=== PATIENT | female | born 1965 | race Caucasian/White ===

== ENCOUNTER 2018-01-30 11:21 | Emergency (ER) | payer MEDICAID ==
[~2018-01-30] VITALS: Ht 165.1 cm; Wt 55.0 kg
[~2018-01-30 11:21] MED LIST: ACET-75 PO; CALC-212 PO; CHOL2000 PO; CYA500T PO; CYCL-1 PO; FERR-119 PO; FLAX100032 PO; MILK1CAP3 PO; MULT-1085 PO; NAPR220T67 PO; TUMERIC PO
[2018-01-30 11:22] VITALS: BP 147/97
[2018-01-30] MEDS ORDERED: ketorolac tromethamine 15mg/ml inj. IM ONE (12:00)
[2018-01-30] MEDS ORDERED: ondansetron 4mg rapidly disintigrating tab PO ONE (12:25)
== END 2018-01-30 12:30 | disposition home or self-care (01) ==
LOC: ER 11:21
DX: G89.29 Other chronic pain (principal); M54.2 Cervicalgia; G43.909 Migraine, unspecified, not intractable, without status migrainosus; Z98.890 Other specified postprocedural states; Z79.899 Other long term (current) drug therapy; Z88.2 Allergy status to sulfonamides; Z91.040 Latex allergy status
CPT/HCPCS: 96372; 99283; J1885

== ENCOUNTER 2019-05-30 07:33 | Emergency (ER) | payer MEDICARE, MEDICAID ==
[~2019-05-30] VITALS: Ht 165.1 cm; Wt 60.9 kg
[~2019-05-30 07:33] MED LIST changes: -CYA500T PO; +CYAN500T63 PO
[2019-05-30 07:51] VITALS: BP 171/95
[2019-05-30] MEDS ORDERED: levoFLOXACIN 750MG TABLET PO ONE (08:10)
[2019-05-30] MEDS ORDERED: KETO10TA2 PO (08:14)
[2019-05-30] MEDS ORDERED: LEVO750T21 PO (08:14)
== END 2019-05-30 08:47 | disposition home or self-care (01) ==
LOC: MERGE 07:34 → ER 07:34
DX: R51 Headache (principal); Z79.899 Other long term (current) drug therapy; Z88.6 Allergy status to analgesic agent; Z88.8 Allergy status to other drugs, medicaments and biological substances
CPT/HCPCS: 99283

== ENCOUNTER 2021-02-13 10:05 | Emergency (ER) | payer BC, MEDICAID ==
[~2021-02-13] VITALS: Ht 152.4 cm; Wt 56.5 kg
[~2021-02-13 10:05] MED LIST changes: -CYAN500T63 PO; +CYAN500T71 PO; +KETO10TA2 PO
[2021-02-13] MEDS ORDERED: ondansetron/PF 4mg/2ml inj IV ONE (11:10)
[2021-02-13] MEDS ORDERED: normal saline 1000ML IV soln IV ONE (11:10)
[2021-02-13] MEDS ORDERED: ketorolac tromethamine 15mg/ml inj. IV ONE (11:10)
[2021-02-13 11:29] LABS: BASOPHILS % (AUTO) 0.2 % (0-1); EOSINOPHILS % (AUTO) 0 % (0-6); HEMOGLOBIN 15.4 g/dl (12.0-16.0); LYMPHOCYTES # (AUTO) 0.3 X10'3 (1.1-4.8); MEAN CORPUSCULAR HEMOGLOBIN 30.7 PG (27.0-31.0); MEAN CORPUSCULAR HGB CONC 33.4 g/dL (33.0-36.5); MEAN PLATELET VOLUME 7.6 FL (7.4-10.4); MONOCYTES # (AUTO) 0.7 X10'3 (0-0.9); NEUTROPHILS % (AUTO) 92.8 % (42-75); PLATELET COUNT 313 X10'3 (140-440); RED CELL DISTRIBUTION WIDTH 13.3 % (11.5-14.5)
[2021-02-13 11:34] LABS: CLARITY,URINE CLEAR (Clear); COLOR,URINE YELLOW (Yellow); GLUCOSE, URINE NEGATIVE (Neg); KETONES,URINE 15 mg/dl (Neg); LEUKOCYTE ESTERASE ,URINE TRACE (Neg); NITRITES, URINE NEGATIVE (Neg); OCCULT BLOOD,URINE NEGATIVE (Neg); PROTEIN,URINE 30 mg/dl (Neg)
[2021-02-13 11:38] LABS: UA COLLECTION TYPE CLN CATCH MIDSTREAM
[2021-02-13 11:39] LABS: BACTERIA,URINE 1+ /HPF (Neg); MUCUS STRANDS FEW /LPF (Neg); RBC,URINE 0-2 /HPF (0-2); SQUAMOUS EPITHELIAL CELL,UR FEW /LPF (FEW)
[2021-02-13 11:40] LABS: WBC CLUMPS,URINE FEW /HPF (NEGATIVE)
[2021-02-13 11:57] LABS: ALANINE AMINOTRANSFERASE 65 U/L (12-78); ALBUMIN 4.2 G/DL (3.4-5.0); ALBUMIN/GLOBULIN RATIO 1.3 (1.1-1.5); ALKALINE PHOSPHATASE 71 IU/L (46-116); ANION GAP 12 (8-16); ASPARTATE AMINO TRANSFERASE 42 U/L (10-37); BILIRUBIN,TOTAL 0.9 MG/DL (0.1-1.0); BLOOD UREA NITROGEN 16 MG/DL (7-18); BUN/CREATININE RATIO 18.6 (6.6-38.0); CALCIUM 9.1 MG/DL (8.5-10.1); CHLORIDE 103 MMOL/L (99-107); CREATININE 0.86 MG/DL (0.40-0.90); GLUCOSE 111 MG/DL (70-104); MAGNESIUM 1.8 MG/DL (1.5-2.4); POTASSIUM 3.9 MMOL/L (3.5-5.1); SODIUM 140 MMOL/L (135-145); TOTAL CARBON DIOXIDE 25.3 MMOL/L (24-32); TOTAL PROTEIN 7.5 G/DL (6.4-8.2); eGFR 69 ML/MIN
[2021-02-13 12:11] LABS: LIPASE 52 U/L (73-393)
[2021-02-13] MEDS ORDERED: ONDA4TAB6 PO (14:04)
[2021-02-13] MEDS ORDERED: AMOX-422 PO (14:04)
[2021-02-13 14:47] VITALS: BP 122/77
[2021-02-13] MEDS ORDERED: CEPH250T PO (21:13)
== END 2021-02-13 14:48 | disposition home or self-care (01) ==
LOC: ER 10:05
DX: K57.30 Diverticulosis of large intestine without perforation or abscess without bleeding (principal); G43.909 Migraine, unspecified, not intractable, without status migrainosus; G89.29 Other chronic pain; Z20.822 Contact with and (suspected) exposure to COVID-19; M54.9 Dorsalgia, unspecified; Z88.2 Allergy status to sulfonamides; Z88.8 Allergy status to other drugs, medicaments and biological substances; Z88.6 Allergy status to analgesic agent; Z91.040 Latex allergy status; Z88.1 Allergy status to other antibiotic agents
CPT/HCPCS: 36415; 74176; 80053; 81001; 83605; 83690; 83735; 84145; 85025; 87040; 87088; 87635; 96374; 96375; 99284; C9803; J1885; J2405; J7030

== ENCOUNTER 2021-02-13 17:22 | Emergency (ER) | payer BC ==
[~2021-02-13] VITALS: Ht 165.1 cm; Wt 58.2 kg
[~2021-02-13 17:22] MED LIST changes: +AMOX-422 PO; +ONDA4TAB6 PO
[2021-02-13] MEDS ORDERED: dexamethasone sod phosphate 10mg/ml inj IV STA (18:57)
[2021-02-13] MEDS ORDERED: ketorolac tromethamine 15mg/ml inj. IV ONE (19:00)
[2021-02-13] MEDS ORDERED: normal saline 1000ML IV soln IVB ONE (19:00)
[2021-02-13] MEDS ORDERED: famotidine/PF 10 mg/ml inj IV ONE (19:00)
[2021-02-13] MEDS ORDERED: ondansetron/PF 4mg/2ml inj IV ONE ×2 (19:00)
[2021-02-13 19:25] LABS: BASOPHILS % (AUTO) 0.2 % (0-1); EOSINOPHILS % (AUTO) 0.1 % (0-6); HEMATOCRIT 39.9 % (35.0-45.0); HEMOGLOBIN 13.4 g/dl (12.0-16.0); LYMPHOCYTES # (AUTO) 0.5 X10'3 (1.1-4.8); LYMPHOCYTES % (AUTO) 5.7 % (21-51); MEAN CORPUSCULAR HEMOGLOBIN 30.8 PG (27.0-31.0); MEAN CORPUSCULAR HGB CONC 33.6 g/dL (33.0-36.5); MEAN CORPUSCULAR VOLUME 91.7 FL (78-98); MEAN PLATELET VOLUME 7.5 FL (7.4-10.4); MONOCYTES # (AUTO) 0.5 X10'3 (0-0.9); MONOCYTES % (AUTO) 5.9 % (2-12); NEUTROPHILS # (AUTO) 8.2 X10'3 (1.8-7.7); NEUTROPHILS % (AUTO) 88.1 % (42-75); PLATELET COUNT 265 X10'3 (140-440); RED BLOOD COUNT 4.35 X10'6 (4.20-5.60); RED CELL DISTRIBUTION WIDTH 12.9 % (11.5-14.5); WHITE BLOOD COUNT 9.3 X10'3 (4.5-11.0)
[2021-02-13 19:38] LABS: ALANINE AMINOTRANSFERASE 67 U/L (12-78); ALBUMIN 3.3 G/DL (3.4-5.0); ALBUMIN/GLOBULIN RATIO 1.2 (1.1-1.5); ALKALINE PHOSPHATASE 57 IU/L (46-116); ANION GAP 12 (8-16); ASPARTATE AMINO TRANSFERASE 43 U/L (10-37); BILIRUBIN,TOTAL 0.8 MG/DL (0.1-1.0); BLOOD UREA NITROGEN 13 MG/DL (7-18); BUN/CREATININE RATIO 16.7 (6.6-38.0); CHLORIDE 104 MMOL/L (99-107); CREATININE 0.78 MG/DL (0.40-0.90); GLUCOSE 118 MG/DL (70-104); LIPASE < 50 U/L (73-393); POTASSIUM 3.9 MMOL/L (3.5-5.1); SODIUM 139 MMOL/L (135-145); TOTAL PROTEIN 6.1 G/DL (6.4-8.2); eGFR 77 ML/MIN
[2021-02-13] MEDS ORDERED: CEPH250T PO (21:13)
[2021-02-13] MEDS ORDERED: CefTRIAXone 2gm/D5W 50ml BAG 50 ML IV ONE (21:15)
[2021-02-13 22:09] LABS: COLOR,URINE YELLOW (Yellow); GLUCOSE, URINE NEGATIVE (Neg); KETONES,URINE 15 mg/dl (Neg); LEUKOCYTE ESTERASE ,URINE MODERATE (Neg); NITRITES, URINE NEGATIVE (Neg); OCCULT BLOOD,URINE NEGATIVE (Neg); PROTEIN,URINE NEGATIVE (Neg); UROBILINOGEN,URINE 0.2 E.U/dL (0.2-1.0)
[2021-02-13 22:16] LABS: UA COLLECTION TYPE CLN CATCH MIDSTREAM
[2021-02-13 22:17] LABS: BACTERIA,URINE FEW /HPF (Neg); CLARITY,URINE SLIGHTLY CLOUDY (Clear); RBC,URINE NONE SEEN /HPF (0-2); SQUAMOUS EPITHELIAL CELL,UR FEW /LPF (FEW); TRANSITIONAL EPI CELLS,URINE FEW /HPF
[2021-02-13 23:09] VITALS: BP 138/95
[2021-02-13 23:19] LABS: TOTAL CELLS COUNTED 100
[2021-02-13 23:20] LABS: ANISOCYTOSIS 1+; PLATELET ESTIMATE NORMAL
== END 2021-02-13 22:56 | disposition home or self-care (01) ==
LOC: ER 17:23
DX: N39.0 Urinary tract infection, site not specified (principal); G43.909 Migraine, unspecified, not intractable, without status migrainosus; G89.29 Other chronic pain; M54.9 Dorsalgia, unspecified; Z88.2 Allergy status to sulfonamides; Z88.6 Allergy status to analgesic agent; Z88.5 Allergy status to narcotic agent; Z91.040 Latex allergy status; Z88.8 Allergy status to other drugs, medicaments and biological substances; Z79.899 Other long term (current) drug therapy
CPT/HCPCS: 36415; 76856; 80053; 81001; 83690; 85007; 85025; 87088; 96361; 96365; 96375; 99284; J0696; J1100; J1885; J2405; J3490; J7030